=== PATIENT | male | born 1970 | race Caucasian/White ===

== ENCOUNTER → 2020-11-18 | Day surgery (SDC) | payer OTHER ==
[~2020-11-18] VITALS: Ht 195.6 cm; Wt 204.1 kg
[~2020-11-18] MED LIST: AMLODIPINE BESY10 MG PO; ASPIRIN EC81 MG PO; BENAZEPRIL HCL40 MG PO; CARDURA4 MG PO; CLARITIN10 MG PO; EFFEXOR-XR 75 M75 MG PO; LASIX20 MG PO; MAXZIDE 75 MG-1 EACH PO; METFORMIN HCL500 MG PO; TRAZODONE 50MG50 MG PO; VICTOZA 3-0.6 MG/0.1 SC
== END | disposition home or self-care (01) ==
LOC: FAS 07:38
DX: Z12.11 Encounter for screening for malignant neoplasm of colon (principal); D12.3 Benign neoplasm of transverse colon; K57.30 Diverticulosis of large intestine without perforation or abscess without bleeding; E11.9 Type 2 diabetes mellitus without complications; I10 Essential (primary) hypertension; G47.30 Sleep apnea, unspecified; K21.9 Gastro-esophageal reflux disease without esophagitis; Z98.84 Bariatric surgery status; Z79.82 Long term (current) use of aspirin; Z79.84 Long term (current) use of oral hypoglycemic drugs; Z79.899 Other long term (current) drug therapy
CPT/HCPCS: 82962; J2704; J7120